=== PATIENT | male | born 1940 | race Caucasian/White ===

== ENCOUNTER 2023-11-07 13:46 | Outpatient (AMB) | payer MEDICARE, SELFPAY ==
[2023-11-07 13:52] VITALS: BP 110/64; PULSE 62; O2SAT 97; BMI 28.1
--- NOTE | 2023-11-07 13:52 | A.OFFVIS_ITS ---
Vital Signs 11/07/23 13:52 Height 5 ft 7 in Weight 179 lb 10.828 oz BMI 28.1 BP 110/64 Blood Pressure Location Lt brachial Position Sitting Pulse 62 Pulse Source Doppler Pulse Oximetry (%) 97 Oxygen Delivery Method Room Air Intake Visit Reasons: chronic cough Allergies No Known Allergies Allergy (Verified 11/07/23 13:57) HPI HPI chronic cough: Details: 83-year-old gentleman, nonsmoker, with underlying history of sarcoidosis diagnosed over 30 years prior, on no recent therapy, referred for evaluation of chronic cough productive of whitish to yellowish sputum since April of 2023. Patient was tried on azithromycin and Tessalon with no significant improvement. He has family history of sarcoidosis in his sister. 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 [facility] Social History (Updated 11/07/23 @ 14:00 by Abbie Briscoe Jayda) Patient Tobacco Use Status: Never used Tobacco Review of Systems Const Denies daytime sleepiness, Denies excessive sweating, Denies fatigue, Denies fever(s), Denies lethargy, Denies malaise, Denies night sweats, Denies snoring and Denies weight loss Eyes Denies blurry vision and Denies itchy eyes ENT Denies nasal congestion, Denies post nasal drip, Denies sinus pain, Denies sinus pressure and Denies other ( Thrush) Card Denies chest pain, Denies pedal edema, Denies dyspnea, Denies orthopnea and Denies paroxysmal nocturnal dyspnea Resp Reports cough, Denies hemoptysis, Reports excessive phlegm production, Denies dyspnea, Denies snoring and Denies wheezing GI Denies abdominal pain and Denies heartburn Musc Denies myalgias, Denies arthralgias and Denies joint swelling Skin/Breast Denies rash Neuro Denies memory loss and Denies seizure-like activity Psych Denies abnormal sleep pattern, Denies anxiety and Denies memory loss Endo Denies excessive sweating, Denies fatigue and Denies heat intolerance John/Lymph Denies easy bruising Aller/Immun Denies itchy eyes, Denies seasonal rhinorrhea and Denies wheezing Physical Exam Vital Signs: Last Vital Signs Pulse 62 11/07/23 13:52 BP 110/64 11/07/23 13:52 Pulse Ox 97 11/07/23 13:52 Oxygen Delivery Method Room Air 11/07/23 13:52 BMI result Body Mass Index 28.1 Const General: no acute distress and alert Nutritional Appearance: not obese Orientation/consciousness: Other orientation findings ( oriented) HEENT Head: Yes atraumatic Eyes General: appearance normal, both eyes and all related structures Sclerae: sclerae normal EOM: EOMs intact bilaterally Neck Neck: Yes supple Lymphatic: no lymphadenopathy noted Resp Effort & Inspection: normal respiratory effort and no use of accessory muscles Auscultation: clear to auscultation bilaterally Cardio Rate: regular rate Rhythm: regular rhythm Heart sounds: no gallops, no murmurs and no rubs Skin General skin exam: other ( warm) Extrem General: No clubbing, No cyanosis and No edema Assessment & Plan Assessment & Plan (1) Chronic cough: Code(s): R05.3 - Chronic cough Category: Medical Plan: Unclear etiology, may have infectious or inflammatory components. Will obtain sputum culture and treat with empiric Augmentin. Codeine syrup for symptom relief. (2) Sarcoidosis: Code(s): D86.9 - Sarcoidosis, unspecified Category: Medical Plan: Will obtain CT chest for further evaluation. Orders: Orders Sputum Cult + Gram stain Today R05.3 - Chronic cough Fungus Cult Other Today R05.3 - Chronic cough CT chest wo IV con Today D86.9 - Sarcoidosis, unspecified Medications: New amoxicillin-pot clavulanate 875-125 mg 1 tab PO BID 20 tabs 0RF codeine-guaifenesin 10-100 mg/5 mL 10 mL PO Q4-6H PRN 473 mL 1RF cough 14 days Coding Level of Care Code New Pt Level 4 (83938) Diagnoses Chronic cough R05.3 Sarcoidosis D86.9
== END 2023-11-07 14:23 | disposition home or self-care (01) ==
PROVIDERS: PCP Internal Medicine; Referring Provider Internal Medicine; Visit Provider Internal Medicine Pulmonary Disease
DX: R05.3 Chronic cough (principal); D86.9 Sarcoidosis, unspecified
CPT/HCPCS: 99204

== ENCOUNTER 2023-11-07 13:46 | Outpatient (REF) | payer MEDICARE, SELFPAY | END 2023-11-07 13:47 | disposition home or self-care (01) | LOC: HO.LAB 13:46 | PROVIDERS: PCP Internal Medicine; Referring Provider Internal Medicine; Visit Provider Internal Medicine Pulmonary Disease | DX: R05.3 Chronic cough (principal); D86.9 Sarcoidosis, unspecified | CPT/HCPCS: 99202 ==

== ENCOUNTER 2023-12-11 16:07 | Outpatient (REF) | payer MEDICARE, SELFPAY ==
--- NOTE | ~2023-12-11 | CT_ITS ---
EXAMINATION: CT CHEST WITHOUT CONTRAST CLINICAL INFORMATION: Sarcoidosis, unspecified. COMPARISON: None available. TECHNIQUE: Multidetector volumetric CT imaging of the chest was done. Axial MIP volume rendering provided. Sagittal and coronal reformatted images were obtained. This CT examination was performed using dose optimization techniques as appropriate, variously including the following: *Automated exposure control *Adjustment of mA and/or kV according to patient size (this includes techniques or standardized protocols for targeted exams where dose is matched to indication/reason for exam; i.e. extremities or head) *Use of iterative reconstruction technique DLP: 144 mGy-cm FINDINGS: LUNGS: Mild cylindrical bronchiectasis with a lower lobe predominance. Mild peripheral reticulation in the lower lobes. Platelike opacities in the right lung base favoring to represent subsegmental atelectasis or scarring. No dense consolidation or significant groundglass disease. Central airways are patent. Multiple bilateral solid pulmonary nodules are seen measuring up to 4 mm, for instance right lower lobe (image 102 series 6 and image 120 series 6) and left lower lobe (image 127 series 6). MEDIASTINUM: Normal heart size. No pericardial effusion. No mediastinal lymphadenopathy. CORONARY ARTERY CALCIFICATION: Severe multivessel coronary calcifications with postoperative changes/stents in some of the coronary arteries. PLEURA: No pleural effusion or pneumothorax. AXILLA: No lymphadenopathy. UPPER ABDOMEN: Too small to characterize liver hypodensities images 45 and 53, series 7. Nonspecific gastric distention. OSSEOUS STRUCTURES: Chronic fractures of the right posterior eighth and ninth ribs and posterior left 12th rib with callus formation. Degenerative changes of the spine. No acute or aggressive appearing osseous findings. CT/CT chest wo IV con IMPRESSION: 1. Mild cylindrical bronchiectasis and peripheral reticulation with a lower lobe predominance. Findings could indicate early interstitial lung abnormality with fibrosis. Recommend short-term follow-up in 3-6 months with high-resolution CT chest. 2. Multiple bilateral solid pulmonary nodules measuring up to 4 mm. According to the UPDATED 2017 Fleischner Society recommendations, the advised follow-up imaging for multiple solid nodules measuring up to 6-8 mm is follow-up CT at 3 to 6 months. 3. Nonspecific too small to characterize liver hypodensities. Recommend attention on follow-up at the time of the re-examination of the pulmonary nodules to ensure stability, alternatively, for further characterization evaluation with ultrasound could be obtained. Fleischner guidelines were followed.
== END 2023-12-11 16:08 | disposition home or self-care (01) ==
LOC: HO.CT 16:07
PROVIDERS: Visit Provider Internal Medicine Pulmonary Disease
DX: D86.9 Sarcoidosis, unspecified (principal)
CPT/HCPCS: 71250

== ENCOUNTER 2023-12-18 13:23 | Outpatient (AMB) | payer MEDICARE, SELFPAY ==
[2023-12-18 13:25] VITALS: BP 108/74; PULSE 95; O2SAT 96; BMI 28.5
--- NOTE | 2023-12-18 13:25 | MHC.OFFVIS ---
Vital Signs 12/18/23 13:25 Height 5 ft 7 in Weight 182 lb BMI 28.5 BP 108/74 Blood Pressure Location Rt brachial Position Sitting Pulse 95 Pulse Source Doppler Pulse Oximetry (%) 96 Oxygen Delivery Method Room Air Intake Visit Reasons: Cchronic Cough Allergies No Known Allergies Allergy (Verified 12/18/23 13:31) HPI HPI Cchronic Cough: Details: 83-year-old gentleman, nonsmoker, with underlying history of sarcoidosis diagnosed over 30 years prior, on no recent therapy, referred for evaluation of chronic cough productive of whitish to yellowish sputum since April of 2023. Patient was tried on azithromycin and Tessalon with no significant improvement. He has family history of sarcoidosis in his sister. 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 After the last office visit patient has completed his antibiotic regimen and stated that his cough has improved significantly while on Augmentin, however did slowly return after finishing it. Patient also had his CT chest with no official read available at this time, reviewed by me does not show significant intrapulmonary disease. [facility] Social History Patient Tobacco Use Status: Never used Tobacco Review of Systems Const Denies daytime sleepiness, Denies excessive sweating, Denies fatigue, Denies fever(s), Denies lethargy, Denies malaise, Denies night sweats, Denies snoring and Denies weight loss Eyes Denies blurry vision and Denies itchy eyes ENT Denies nasal congestion, Denies post nasal drip, Denies sinus pain, Denies sinus pressure and Denies other ( Thrush) Card Denies chest pain, Denies pedal edema, Denies dyspnea, Denies orthopnea and Denies paroxysmal nocturnal dyspnea Resp Reports cough, Denies hemoptysis, Reports excessive phlegm production, Denies dyspnea, Denies snoring and Denies wheezing GI Denies abdominal pain and Denies heartburn Musc Denies myalgias, Denies arthralgias and Denies joint swelling Skin/Breast Denies rash Neuro Denies memory loss and Denies seizure-like activity Psych Denies abnormal sleep pattern, Denies anxiety and Denies memory loss Endo Denies excessive sweating, Denies fatigue and Denies heat intolerance John/Lymph Denies easy bruising Aller/Immun Denies itchy eyes, Denies seasonal rhinorrhea and Denies wheezing Physical Exam Vital Signs: Last Vital Signs Pulse 95 12/18/23 13:25 BP 108/74 12/18/23 13:25 Pulse Ox 96 12/18/23 13:25 Oxygen Delivery Method Room Air 12/18/23 13:25 BMI result Body Mass Index 28.5 Const General: no acute distress and alert Nutritional Appearance: not obese Orientation/consciousness: Other orientation findings ( oriented) HEENT Head: Yes atraumatic Eyes General: appearance normal, both eyes and all related structures Sclerae: sclerae normal EOM: EOMs intact bilaterally Neck Neck: Yes supple Lymphatic: no lymphadenopathy noted Resp Effort & Inspection: normal respiratory effort and no use of accessory muscles Auscultation: clear to auscultation bilaterally Cardio Rate: regular rate Rhythm: regular rhythm Heart sounds: no gallops, no murmurs and no rubs Skin General skin exam: other ( warm) Extrem General: No clubbing, No cyanosis and No edema Assessment & Plan Assessment & Plan (1) Chronic cough: Code(s): R05.3 - Chronic cough Category: Medical Plan: Initially improved on Augmentin, records after. Will try on longer course of Augmentin and will consider suppressive therapy. (2) Sarcoidosis: Code(s): D86.9 - Sarcoidosis, unspecified Category: Medical Plan: CT chest reviewed by me, does show mild peripheral early scarring that can be consistent with slowly progressive sarcoidosis, otherwise no clinical symptoms. Continue to monitor clinically. Medications: New albuterol sulfate 90 mcg/actuation 2 puffs inhalation Q4-6H PRN 1 inhaler 1RF shortness of breath or wheezing Refilled amoxicillin-pot clavulanate 875-125 mg 1 tab PO BID 42 tabs 0RF Coding Level of Care Code Est Pt Level 4 (14459) Diagnoses Chronic cough R05.3 Sarcoidosis D86.9
== END 2023-12-18 13:41 | disposition home or self-care (01) ==
PROVIDERS: PCP Internal Medicine; Visit Provider Internal Medicine Pulmonary Disease
DX: R05.3 Chronic cough (principal); D86.9 Sarcoidosis, unspecified
CPT/HCPCS: 99214

== ENCOUNTER → 2023-12-18 13:23 | Outpatient (BNVA) | payer MEDICARE, SELFPAY | PROVIDERS: PCP Internal Medicine; Visit Provider Internal Medicine Pulmonary Disease | DX: R05.3 Chronic cough (principal); D86.9 Sarcoidosis, unspecified | CPT/HCPCS: 99212 ==

== ENCOUNTER 2024-06-23 13:13 | Outpatient (AMB) | payer MEDICARE, SELFPAY ==
--- NOTE | 2024-06-23 13:20 | A.OFFVIS_ITS ---
Vital Signs 06/23/24 13:22 Height 5 ft 7 in Weight 174 lb BMI 27.2 BP 108/64 Blood Pressure Location Lt brachial Position Sitting Pulse 77 Pulse Source Doppler Pulse Oximetry (%) 95 Oxygen Delivery Method Room Air Intake Visit Reasons: Cough Allergies No Known Allergies Allergy (Verified 12/18/23 13:31) HPI HPI Cough: Details: 83-year-old gentleman, nonsmoker, followed for sarcoidosis, bronchiectasis, and recurrent cough. After the last office visit patient continued with recurrent cough with poor response to beta-lactam. [facility] Social History Patient Tobacco Use Status: Never used Tobacco Review of Systems Const Denies daytime sleepiness, Denies excessive sweating, Denies fatigue, Denies fever(s), Denies lethargy, Denies malaise, Denies night sweats, Denies snoring and Denies weight loss Eyes Denies blurry vision and Denies itchy eyes ENT Denies nasal congestion, Denies post nasal drip, Denies sinus pain, Denies sinus pressure and Denies other ( Thrush) Card Denies chest pain, Denies pedal edema, Denies dyspnea, Denies orthopnea and Denies paroxysmal nocturnal dyspnea Resp Reports cough, Denies hemoptysis, Reports excessive phlegm production, Denies d yspnea, Denies snoring and Denies wheezing GI Denies abdominal pain and Denies heartburn Musc Denies myalgias, Denies arthralgias and Denies joint swelling Skin/Breast Denies rash Neuro Denies memory loss and Denies seizure-like activity Psych Denies abnormal sleep pattern, Denies anxiety and Denies memory loss Endo Denies excessive sweating, Denies fatigue and Denies heat intolerance John/Lymph Denies easy bruising Aller/Immun Denies itchy eyes, Denies seasonal rhinorrhea and Denies wheezing Physical Exam Vital Signs: Last Vital Signs Pulse 77 06/23/24 13:22 BP 108/64 06/23/24 13:22 Pulse Ox 95 06/23/24 13:22 Oxygen Delivery Method Room Air 06/23/24 13:22 BMI result Body Mass Index 27.2 Const General: no acute distress and alert Nutritional Appearance: not obese Orientation/consciousness: Other orientation findings ( oriented) HEENT Head: Yes atraumatic Eyes General: appearance normal, both eyes and all related structures Sclerae: sclerae normal EOM: EOMs intact bilaterally Neck Neck: Yes supple Lymphatic: no lymphadenopathy noted Resp Effort & Inspection: normal respiratory effort and no use of accessory muscles Auscultation: clear to auscultation bilaterally Cardio Rate: regular rate Rhythm: regular rhythm Heart sounds: no gallops, no murmurs and no rubs Skin General skin exam: other ( warm) Extrem General: No clubbing, No cyanosis and No edema Assessment & Plan Assessment & Plan (1) Sarcoidosis: Code(s): D86.9 - Sarcoidosis, unspecified Category: Medical Plan: Results of CT scan of the chest reviewed. Cylindrical bronchiectasis with small nodules and underlying stigmata of sarcoidosis. Will repeat CT scan in November of 2024. (2) Bronchiectasis: Code(s): J47.9 - Bronchiectasis, uncomplicated Category: Medical Plan: Now with ongoing exacerbation with poor response to beta-lactam. Will obtain sputum culture. If inconclusive, may require bronchoalveolar lavage. (3) Chronic cough: Code(s): R05.3 - Chronic cough Category: Medical Plan: Likely secondary to bronchiectasis exacerbation. Sputum cultures pending. Continue codeine syrup for symptom control. Orders: Orders Sputum Cult + Gram stain Today R05.3 - Chronic cough Medications: Refilled codeine-guaifenesin 10-100 mg/5 mL 10 mL PO Q4-6H 14 days PRN 473 mL 0RF cough Coding Level of Care Code Est Pt Level 4 (64911) Complex EM visit Add On G2211 Diagnoses Sarcoidosis D86.9 Bronchiectasis J47.9 Chronic cough R05.3
[2024-06-23 13:22] VITALS: BP 108/64; PULSE 77; O2SAT 95; BMI 27.2
--- OUTSIDE RECORDS SUMMARY | 2024-06-24 21:34 | XMS_ITS | Data Portability ---
Author Organization [facility] Address [address] [facility] [address] [place] [address] Care Team Providers Care Wash Driller Helper Name Role Phone AMELIA LOYA Primary Care Provider Assessment Encounter Date Assessment Date Assessment LastModified by Organization Details LastModified Time 09/13/2020 09/13/2020 Rito Connors is a 79 year old man with low back pain radiating into both lower extremities. On exam ,he has pain on flexion. MRI Lumbar spine shows Spondylotic and degenerative disc changes of the lumbar spine are present . He is here for a Lumbar epidural steroid injections under fluoroscopic guidance . The risks and benefits of the procedure were discussed in detail. He wishes to proceed. He needs a follow up by telehealth visit in four weeks. [email or web address] Not available 09/13/2020 13:01:04 09/19/2020 09/19/2020 Rito Connors is a 78 year old man with complaints of neck pain radiating into right upper back. He has history of neck pain for the past 10 years. He had a recent exacerbation three weeks ago. He has no persistent radiating pain in his upper extremities. On exam, tenderness is elicited on palpation of the cervical paraspinal muscles. Spurling's sign is negative. Trigger points are elicited in the right paraspinal muscle. MRI cervical spine shows Reversed cervical lordosis with multilevel degenerative changes as discussed above. Multilevel central and foraminal narrowing. At C3-4, there is increased loss of disc height with increased foraminal stenosis compared to 04/06/2014 study. He is here for a trigger point injections in his right paraspinal muscle in the cervical region under ultrasound guidance . The risks and benefits of the procedure were discussed and he wishes to proceed . He will follow up as needed. [email or web address] Not available 09/19/2020 14:04:01 05/08/2021 05/08/2021 Rito Connors is a 80 year old man with complaints of neck pain radiating into right upper back. He has history of neck pain for the past 10 years. He had a recent exacerbation three weeks ago. He has no persistent radiating pain in his upper extremities. On exam, tenderness is elicited on palpation of the cervical paraspinal muscles. Spurling's sign is negative. Trigger points are elicited in the right paraspinal muscle. MRI cervical spine shows Reversed cervical lordosis with multilevel degenerative changes as discussed above. Multilevel central and foraminal narrowing. At C3-4, there is increased loss of disc height with increased foraminal stenosis compared to 04/06/2014 study. He is here for a trigger point injections in his right paraspinal muscle in the cervical region under ultrasound guidance . The risks and benefits of the procedure were discussed and he wishes to proceed . He will follow up as needed. [email or web address] Not available 05/08/2021 15:08:41 11/16/2021 11/16/2021 Rito Connors is a 81 year old man with complaints of neck pain radiating into right upper back. He has history of neck pain for the past 10 years. He had a recent exacerbation three weeks ago. He has no persistent radiating pain in his upper extremities. On exam, tenderness is elicited on palpation of the cervical paraspinal muscles. Spurling's sign is negative. Trigger points are elicited in the right paraspinal muscle. MRI cervical spine shows Reversed cervical lordosis with multilevel degenerative changes as discussed above. Multilevel central and foraminal narrowing. At C3-4, there is increased loss of disc height with increased foraminal stenosis compared to 04/06/2014 study. He is here for a trigger point injections in his right paraspinal muscle in the cervical region under ultrasound guidance . The risks and benefits of the procedure were discussed and he wishes to proceed . He will follow up as needed. [email or web address] Not available 11/16/2021 15:27:56 04/04/2023 04/04/2023 Rito Connors is a 82 year old man with complaints of right shoulder pain and limited range of motion. He had a recent episode of herpes zoster in his right arm and shoulder . He is very sensitive to touch in this region. He is unable to have physical therapy. I recommend a right shoulder joint steroid injection in two weeks and then followed by PT For his post herpetic neuralgia - I have prescribed lidocaine patches for him. [email or web address] Not available 04/08/2023 09:28:59 Plan of Treatment Reminders Order Date Submit Date Provider Last Modified By Organization Details Last Modified Time Details Appointments None recorded. Lab None recorded. Referral None recorded. Procedures None recorded. Surgeries None recorded. Imaging None recorded. Medication Orders lidocaine 5 % topical patch 2022 023 [id number], [address], [place], [id number], 15:51:17 Patient TargetsNo targets recorded. Patient Instructions Encounter Date Encounter Id Patient Instructions Last Modified By Organization Details Last Modified Time 04/04/2023 [id number] He was advised against bed rest lasting longer than four days and to continue activities as tolerated. [email or web address] Not available 04/05/2023 14:30:30 Reason for Referral None Reported. Problems Name Problem SNOMED Code Status Onset Date Resolution Date Notes Provider Name and Address Organization Details Recorded Time Muscle pain 72106369 Active Vignesh jama MD [address] , [address], [place], [address], [place] [facility] 5 09:07:06 Occipital headache [id number] Sam jama MD [address] , [address], [place], [address], [place] [facility] 5 09:07:06 Spinal stenosis of lumbar region 93418234 Sam jama MD [address] , [address], [place], [address], [place] [facility] 0 10:04:40 Lumbosacral radiculopathy [id number] Sam jama MD [address] , [address], [place], [address], [place] [facility] 0 10:05:08 Lumbosacral spondylosis without myelopathy 50495371 Active Vingesh jama MD [address] , [address], [place], [address], [place] [facility] 0 10:05:44 Cervical spondylosis without myelopathy 352599207 Active Vignesh jama MD [address] , [address], [place], [address], [place] [facility] 5 09:07:06 Degeneration of cervical intervertebral disc 59718299 Active Vignesh jama MD [address] , [address], [place], [address], [place] [facility] 5 09:07:06 Brachial radiculitis 89723493 Active Vignesh jama MD [address] , [address], [facility] [place], [address], [place] [facility] 5 09:07:06 Spinal stenosis in cervical region 94362072 Active Vignesh jama MD [address] , [address], [place], [address], [place] [facility] 5 09:07:06 Problem Notes None recorded. Procedures Surgical History Date Name Laterality Status Provider Name and Address Organization Details Recorded Time 11/17/19 22 Trigger Point Injections under ultrasound guidance completed Vignesh Turner MD [address] , [address], [place], [address], [place] [facility] 11/16/2021 15:26:53 05/08/20 21 Trigger Point Injections under ultrasound guidance completed Vignesh Turner MD [address] , [address], [place], [address], [place] [facility] 05/08/2021 15:07:38 09/20/19 21 Trigger Point Injections under ultrasound guidance completed Vignesh Turner MD [address] , [address], [facility] [place], [address], [place] [facility] 09/19/2020 13:59:20 09/14/19 21 Lumbar Epidural steroid injection under fluoroscopic guidance completed Vignesh Turner MD [address] [facility] , [address], [place], [address], [facility] - Pain Management 09/13/2020 13:00:33 04/19/20 20 Lumbar Epidural steroid injection under fluoroscopic guidance completed Vignesh Turner MD [address] [facility] , [address], [place], [address], [facility] - Pain Management 04/19/2020 10:35:16 09/17/19 20 Greater Occipital Nerve Block(s) completed Vignesh Turner MD [address] , [address], [place], [address], [facility] - Pain Management 09/17/2019 16:11:38 Hernia Repair completed Shruthi Zavala [facility] Pain Management 04/09/2014 10:17:03 Other completed Vignesh Turner MD [address] [facility] , [address], [place], [address], [facility] - Pain Management 04/01/2020 14:04:04 Imaging Results None recorded. Procedure Notes None recorded. Medical Equipment None Reported. Allergies Allergen ID Allergen Name Allergen Category Reaction Reaction Severity Criticality Documentation Date Start Date Code Code System Note Provider Name and Address Organization Details Recorded Time shellfish derived food,medi cation Not available Not available Not available 04/04/2023 Lori merlos, [facility] 3 15:31:06 Medications Name Sig Start Date Stop Date Status Note LastModified by Organization Details LastModified Time atorvastat in 80 mg tablet TAKE 1 TABLET BY MOUTH AT BEDTIME active Not Available Not Available No t Available prednisone 10 mg tablet TAKE 4 TABLETS BY MOUTH ONCE DAILY FOR 2 DAYS THEN 3 TABS X2 DAYS... (REFER TO PRESCRIPT ION NOTES). 08/31 completed Not Available Not Available Not Available doxycyclin e hyclate 100 mg capsule TAKE 1 CAPSULE BY MOUTH TWICE DAILY 04/04 completed Not Available Not Available Not Available trazodone 50 mg tablet active Not Available Not Available Not Available valacyclov ir 1 gram tablet active Not Available Not Available Not Available prednisone 20 mg tablet 08/31 completed Not Available Not Available Not Available niacin ER 500 mg tablet,ext ended release 24 hr 03/25 completed Not Available Not Available Not Available methylpred nisolone 4 mg tablet 11/16 completed Not Available Not Available Not Available atenolol 25 mg tablet TAKE 1 TABLET BY MOUTH TWICE DAILY 11/16 completed Not Available Not Available Not Available nafcillin 2 gram solution for injection 08/31 completed Not Available Not Available Not Available acetaminop hen 300 mg-codeine 30 mg tablet active Not Available Not Available Not Available levofloxac in 250 mg tablet 08/31 completed Not Available Not Available Not Available acyclovir 400 mg tablet active Not Available Not Available Not Available tramadol 50 mg tablet 04/04 completed Not Available Not Available Not Available hydromorph one 2 mg tablet 04/04 completed Not Available Not Available Not Available tamsulosin 0.4 mg capsule TAKE 1 CAPSULE BY MOUTH EVERY DAY active Not Available Not Available No t Available benzonatat e 100 mg capsule take 1 capsule by mouth three times a day if needed 08/31 completed Not Available Not Available Not Available lidocaine 5 % topical patch Apply by topical route for 60 days. active Not Available Not Available No t Available Advair Diskus 250 mcg-50 mcg/dose powder for inhalation inhale 1 puff by mouth twice a day active Not Available Not Available No t Available metoprolol tartrate 50 mg tablet TAKE 2 TABLETS BY MOUTH TWICE DAILY active Not Available Not Available No t Available gabapentin 300 mg capsule TAKE 1 CAPSULE BY MOUTH TWICE DAILY active Not Available Not Available No t Available omeprazole 20 mg capsule,de layed release 04/04 completed Not Available Not Available Not Available codeine 10 mg-guaifen esin 100 mg/5 mL oral liquid TAKE 10 ML BY MOUTH FOUR TIMES DAILY NEEDED 04/04 completed Not Available Not Available Not Available gabapentin 100 mg capsule 04/04 completed Not Available Not Available Not Available azelastine 137 mcg (0.1 %) nasal spray 04/04 completed Not Available Not Available Not Available cefuroxime axetil 500 mg tablet TAKE 1 TABLET BY MOUTH TWICE DAILY FOR 5 DAYS 04/04 completed Not Available Not Available Not Available levofloxac in 500 mg tablet take 1 tablet by mouth every 24 hours active Not Available Not Available No t Available levofloxac in 750 mg tablet 08/31 completed Not Available Not Available Not Available methylpred nisolone 4 mg tablets in a dose pack FOLLOW PACKAGE DIRECTION S 04/04 completed Not Available Not Available Not Available albuterol sulfate HFA 90 mcg/actuat ion aerosol inhaler take 2 inhalatio ns by mouth every 4 hours if needed 11/16 completed Not Available Not Available Not Available fluoxetine 20 mg capsule 08/31 completed Not Available Not Available Not Available fluticason e propionate 50 mcg/actuat ion nasal spray,susp ension 11/16 completed Not Available Not Available Not Available doxycyclin e hyclate 100 mg tablet TAKE 1 TABLET BY MOUTH EVERY 12 HOURS FOR 5 DAYS 04/04 completed Not Available Not Available Not Available amoxicilli n 875 mg-potassi um clavulanat e 125 mg tablet TAKE 1 TABLET BY MOUTH EVERY 12 HOURS FOR 5 DAYS 04/04 completed Not Available Not Available Not Available oxycodone 5 mg tablet TAKE 1-2 TABLETS BY MOUTH EVERY 4 HOURS NEEDED FOR MODERATE PAIN SCALE 4-6 04/04 completed Not Available Not Available Not Available enoxaparin 80 mg/0.8 mL subcutaneo us syringe INJECT 0.7 ML UNDER THE SKIN EVERY 12 HOURS FOR 21 DAYS 04/04 completed Not Available Not Available Not Available Vitamin D3 25 mcg (1,000 unit) capsule weekly 04/19 completed Not Available Not Available Not Available Cialis 20 mg tablet 04/19 completed Not Available Not Available Not Available duloxetine 30 mg capsule,de layed release active Not Available Not Available Not Available aspirin 11/16 completed Baby ASA at night Not Available Not Available Not Available omeprazole active Not Available Not Av ailable Not Available [place] 3 Daily 08/31 completed Not Available Not Available Not Available peg 3350-elect rolytes 236 gram-22.74 gram-6.74 gram-5.86 gram solution active Not Available Not Available Not Available CoQ-10 daily 09/16 completed Not Available Not Available Not Available Probiotic daily 08/31 completed Not Available Not Available Not Available Ilevro 0.3 % eye drops,susp ension 08/31 completed Not Available Not Available Not Available Eliquis 5 mg tablet TAKE 1 TABLET BY MOUTH TWICE DAILY active Not Available Not Available No t Available Multi Vitamin Twice 08/31 completed Not Available Not Available Not Available Venclexta 100 mg tablet active Not Available Not Available Not Available Vitals Date Recorded Body height Heart rate Oxygen saturation Oxygen saturation in Arterial blood by Pulse oximetry Systolic blood pressure Diastolic blood pressure Provider Name and Address Organization Details Last Updated DateTime 1 170.18 cm 61 /min 96 % 96 % 130 mm[Hg] 72 mm[Hg] Brielle Mcgillwell [facility] 1 11:19:54 Date Recorded Body height Heart rate Oxygen saturation Oxygen saturation in Arterial blood by Pulse oximetry Systolic blood pressure Diastolic blood pressure Provider Name and Address Organization Details Last Updated DateTime 1 170.18 cm 99 /min 97 % 97 % 151 mm[Hg] 83 mm[Hg] Brielle Gallardo [facility] 1 13:36:10 Date Recorded Body height Heart rate Oxygen saturation Oxygen saturation in Arterial blood by Pulse oximetry Systolic blood pressure Diastolic blood pressure Provider Name and Address Organization Details Last Updated DateTime 1 170.18 cm 84 /min 99 % 99 % 142 mm[Hg] 70 mm[Hg] Kyara jama [place] [facility] 1 14:35:03 Date Recorded Body height Heart rate Oxygen saturation Oxygen saturation in Arterial blood by Pulse oximetry Systolic blood pressure Diastolic blood pressure Provider Name and Address Organization Details Last Updated DateTime 2 170.18 cm 73 /min 99 % 99 % 138 mm[Hg] 74 mm[Hg] Brielle Gallardo [facility] 2 14:38:22 Date Recorded Body height Body mass index (BMI) Body weight Heart rate Oxygen saturation Oxygen saturation in Arterial blood by Pulse oximetry Systolic blood pressure Diastolic blood pressure Provider Name and Address Organization Details Last Updated DateTime 3 167.64 cm 27.6 kg/m2 02585.3 g 72 /min 97 % 97 % 141 mm[Hg] 82 mm[Hg] Lori Lake [place] [facility] 3 15:23:38 Social History Question Answer Notes LastModified by Organizat ion Details LastModified Time Tobacco Smoking Status Never Smoker Not Available [facility] 04/29/2020 03:16:10 What Is Your Level Of Alcohol Consumption? None [id number] Information not available 04/29/2020 Are You Currently Employed? No Retired [id number] Information not available 04/29/2020 Which Illicit Or Recreational Drugs Have You Used? No [id number] Information not available 04/29/2020 Education Post Graduate Information not available 04/09/2014 Live Alone Or With Others? With Others acde Information not available 04/09/2014 Marital Status Informatio n not available 04/09/2014 Sex: Unknown Functional Status None recorded. Mental Status None recorded. Family History Relationship Description Onset Age of this Age Resolved Age Notes LastModified by Organization Details LastModified Time Brother Malignant neoplastic disease [facility] Not available 10/03/2014 08:59:36 Mother [facility] [facility] Not available 10/03/2014 08:59:36 Medical History Condition Response Coronary Artery Disease Y Hypertension Y Asthma Y High Cholesterol Y GERD/Reflux Y Past Encounters Encounter ID Performer Location Encounter Start Date Encounter Closed Date Diagnosis/Indication Diagnosis SNOMED-CT Code Diagnosis ICD10 Code [id number] PAIN OFFICE [address] [place] [address] 04/09/2014 09:56:40 04/27/2014 21:34:53 Brachial radiculitis 58416808 Cervical s pondylosis without myelopathy 801841243 Degenerati on of cervical intervertebral disc 15659179 Spinal quinton nosis in cervical region 96613916 [id number] PAIN OFFICE [address] [place] [address] 10/01/2014 10:29:23 10/03/2014 09:07:37 Degeneration of cervical intervertebral disc 07111278 Spinal quinton nosis in cervical region 29584809 Cervical s pondylosis without myelopathy 264927881 Brachial radiculitis 278 29610 Muscle pain 55155936 Occipital headache 71746 7 [id number] Vignesh Turner MD PAIN OFFICE [address] [place] [address] 08/31/2019 13:31:12 08/31/2019 16:46:15 Cervical spondylosis without myelopathy 273349183 M47.812 Degenerati on of cervical intervertebral disc 06134507 M50.30 Spinal quinton nosis in cervical region 94371062 M48.02 Occipital headache 04468 7 R51 Muscle pain 09839004 M79 .10 Brachial radiculitis 278 89112 M54.12 [id number] Vignesh Turner MD [facility] [address] [place] [address] 09/17/2019 14:25:08 09/17/2019 16:14:06 Cervical spondylosis without myelopathy 083344669 M47.812 Degenerati on of cervical intervertebral disc 48272328 M50.30 Spinal quinton nosis in cervical region 65140096 M48.02 Occipital headache 47489 7 R51 Muscle pain 28916323 M79 .10 Brachial radiculitis 278 16578 M54.12 [id number] Vignesh Turner MD [facility] [address] [place] [address] 03/25/2020 09:55:41 04/01/2020 14:06:05 Lumbosacral radiculopathy 3952778 M54.17 Lumbosacra l spondylosis without myelopathy 53186018 M47.817 Spinal quinton nosis of lumbar region 75655100 M48.061 [id number] Vignesh Turner MD PAIN OFFICE [address] [place] [address] 04/19/2020 10:01:22 04/19/2020 16:12:26 Lumbosacral radiculopathy 1545291 M54.17 Lumbosacra l spondylosis without myelopathy 86934268 M47.817 Spinal quinton nosis of lumbar region 48934524 M48.061 [id number] Vignesh Turner MD [facility] [address] [place] [address] 05/13/2020 11:21:13 05/13/2020 11:34:57 Lumbosacral radiculopathy 6350423 M54.17 Lumbosacra l spondylosis without myelopathy 89551677 M47.817 Spinal quinton nosis of lumbar region 67089722 M48.061 [id number] Vignesh Turner MD [facility] [address] [place] [address] 09/13/2020 10:55:19 09/13/2020 13:31:23 Lumbosacral radiculopathy 7053384 M54.17 Lumbosacra l spondylosis without myelopathy 64072261 M47.817 Spinal quinton nosis of lumbar region 19314196 M48.061 [id number] Vignesh Turner MD [facility] [address] [place] [address] 09/19/2020 13:30:22 09/19/2020 14:02:01 Cervical spondylosis without myelopathy 751958719 M47.812 Degenerati on of cervical intervertebral disc 96072363 M50.30 Spinal quinton nosis in cervical region 28907231 M48.02 Occipital headache 91612 7 R51.9 Muscle pain 12396025 M79 .18 Brachial radiculitis 278 25714 M54.12 [id number] Vignesh Turner MD [facility] [address] [place] [address] 05/08/2021 14:30:41 05/08/2021 15:09:32 Cervical spondylosis without myelopathy 765865206 M47.812 Degenerati on of cervical intervertebral disc 70027676 M50.30 Spinal quinton nosis in cervical region 02562939 M48.02 Occipital headache 78016 7 R51.9 Muscle pain 84178481 M79 .18 Brachial radiculitis 278 49734 M54.12 [id number] Vignesh Turner MD [facility] [address] [place] [address] 11/16/2021 14:10:52 11/16/2021 15:34:04 Cervical spondylosis without myelopathy 973857118 M47.812 Degenerati on of cervical intervertebral disc 20825743 M50.30 Spinal quinton nosis in cervical region 13162080 M48.02 Occipital headache 16345 7 R51.9 Muscle pain 76478379 M79 .18 Brachial radiculitis 278 57609 M54.12 [id number] Vignesh Turner MD PAIN OFFICE [address] [place] [address] [place] [address] 04/04/2023 15:11:25 04/08/2023 09:34:07 Postherpetic neuralgia 3735966 B02.29 Inflammati on of joint of shoulder region 381570628 M13.811 Health Concerns Section Related Observation LastModified by Organization Detai ls LastModified Time None Recorded Concern Status LastModified by Organization Details LastModified Time None Recorded Advance Directives Directive None Recorded Payers Encounter Date Sequence Insurance Name Policy Number Policy Bhandari Covered Member ID Bhandari Member ID Guarantor Name 09/13/2020 1 [place] Rito E Bombard [id number] Rito Bombard 09/13/2020 2 [place] [id number] Rito E Bombard [id number] Rito Bombard 09/19/2020 1 [place] Rito E Bombard [id number] Rito Bombard 09/19/2020 2 [place] [id number] Rito E Bombard [id number] Rito Bombard 05/08/2021 1 [place] Rito E Bombard [id number] Rito Bombard 05/08/2021 2 [place] [id number] Rito E Bombard [id number] Rito Bombard 11/16/2021 1 [place] Rito E Bombard [id number] Rito Bombard 11/16/2021 2 [place] [id number] Rito E Bombard [id number] Rito Bombard 04/04/2023 1 [place] Rito E Bombard [id number] Rito Bombard 04/04/2023 2 [place] [id number] Rito E Bombard [id number] Rito Connors Notes Date Note Type Note Provider Name and Address Organization Details Recorded Time 09/13/2020 text/html He is here today for a lumbar epidural steroid injection under fluoroscopic guidance. Vignesh Turner MD [address] [facility] , [address], [place], [address], [place] [facility] 09/14/2020 09:31:31 09/19/2020 text/html He is here for a right paraspinal muscle trigger point injection under ultrasound guidance. Vignesh Turner MD [address] , [address], [place], [address], [place] [facility] 09/19/2020 14:04:08 05/08/2021 text/html He is here for a right paraspinal muscle trigger point injection under ultrasound guidance. Vignesh Turner MD [address] [facility] , [address], [place], [address], [place] [facility] 05/08/2021 15:12:39 11/16/2021 text/html He is here for a right paraspinal muscle trigger point injection under ultrasound guidance. Vignesh Turner MD [address] , [address], [place], [address], [place] [facility] 11/17/2021 13:31:34 04/04/2023 text/html Rito Connors is a 82 year old man with complaints of right shoulder and arm pain. He is here for a follow up. He was last seen in 11/16/2021 for a trigger point injection. He feels it was helpful. He had herpes zoster about 4 weeks ago with a rash in his right shoulder and arm. He is S/P two courses of antiviral medications. He continues to have pain. He states the searing sporadic pain has subsided. Now he has burning pain with allodynia in the region of the healing rash. He is on duloxetine and gabapentin. He states he has some cloudiness of thought. His grand daughter drove him for today's visit. Vignesh Turner MD [address] [facility] , [address], [place], [address], [place] [facility] 04/08/2023 10:56:48
--- OUTSIDE RECORDS SUMMARY | 2024-06-24 21:34 | XMS_ITS | Clinical Summary ---
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 Active 12-29 00:00: 00 OTHER PANCYTOPENIA Active 07-15 00:00: 00 TUMOR LYSIS SYNDROME Active 07-15 00:00: 00 ATHSCL HEART DISEASE OF [place] CORONARY ARTERY W/O ANG PCTRS Active 07-15 00:00: 00 ESSENTIAL (PRIMARY) HYPERTENSION Active 07-15 00:00: 00 UNSPECIFIED HYDRONEPHROS IS Active 07-15 00:00: 00 BENIGN PAROXYSMAL VERTIGO, UNSPECIFIED EAR Active 07-15 00:00: 00 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 Active 07-15 00:00: 00 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 Active 07-15 00:00: 00 INSOMNIA, UNSPECIFIED Active 07-15 00:00: 00 HEADACHE, UNSPECIFIED Active 07-15 00:00: 00 MIXED HYPERLIPIDEM IA Active 07-15 00:00: 00 PERSONAL HISTORY OF ANTINEOPLAST IC CHEMOTHERAPY Active 12-29 00:00: 00 HISTORY OF FALLING Active 07-15 00:00: 00 PRISON (CURRENT) USE OF ANTICOAGULAN TS Active 01-03 00:00: 00 Allergies, Adverse Reactions, Alerts Allergy Name Allergy Type Status Severity Reaction(s) Onset Date Inactive Date Treating Clinician Comments NO KNOWN ALLERGIES Propensity to adverse reactions Active 01-03 11:02: 15 Medications Ordered Medication Name Filled Medication Name Start Date Stop Date Current Medication? Ordering Clinician Indication Dosage Frequency Signature (SIG) Comments Components tamsulosin 0.4 mg capsule 4-05 00:00: 00 Yes [id number] DIRECTED Per instruc tions EVERY DAY Per instructio ns EVERY DAY (route: oral) Med Classific ation: Genitouri nary Therapy atorvastati n 80 mg tablet 3-30 00:00: 00 Yes [id number] Unavailable Per instruc tions AT BEDTIME Per instructio ns AT BEDTIME (route: oral) Med Classific ation: Cardiovas cular Therapy Agents allopurinol 300 mg tablet 01-03 00:00: 00 Yes [id number] DIRECTED 1 tablet DAILY 1 tablet DAILY (route: oral) Med Classific ation: Gout and Hyperuric emia Therapy cholecalcif sandi (vitamin D3) 25 mcg (1,000 unit) capsule 01-03 00:00: 00 Yes [id number] DIRECTED 1 capsule DAILY 1 capsule DAILY (route: oral) Med Classific ation: Electroly te Balance-N utritiona l Products Eliquis 5 mg tablet 01-03 00:00: 00 Yes [id number] DIRECTED 1 tablet 2 TIMES DAILY 1 tablet 2 TIMES DAILY (route: oral) Med Classific ation: Hematolog ical Agents metoprolol tartrate 50 mg tablet 01-03 00:00: 00 Yes [id number] DIRECTED 1 tablet 2 TIMES DAILY 1 tablet 2 TIMES DAILY (route: oral) Med Classific ation: Cardiovas cular Therapy Agents omeprazole 20 mg capsule,del ayed release 01-03 00:00: 00 Yes [id number] DIRECTED 1 mg DAILY 1 mg DA CHARIS (route: oral) Med Classific ation: Gastroint estinal Therapy Agents ondansetron 8 mg disintegrat ing tablet 01-03 00:00: 00 Yes [id number] DIRECTED 1 tablet EVERY 8 HOURS 1 tablet EVERY 8 HOURS (route: oral) Med Classific ation: Gastroint estinal Therapy Agents Vital Signs Vital Name Observation Time Observation Value Commen ts Temperature 2022-01-03 10:44:00.000 98.2 [degF] BMI (%) 2022-01-03 10:44:00.000 26 kg/m2 Height 2022-01-03 10:44:00.000 66 [in_us] Pulse 2022-01-03 10:44:00.000 62 /min Respirations 2022-01-03 10:44:00.000 18 /min Weight (lbs) 2022-01-03 10:44:00.000 166 [lb_av] Systolic Blood Pressure 2022-01-03 10:44:00.000 136 mm [Hg] Diastolic Blood Pressure 2022-01-03 10:44:00.000 68 mm [Hg] Plan of Treatment Planned Activity Planned Date Details Comments Future Scheduled Test PT EVALUAT ION PERFORMED. NO ADDITIONAL VISITS REQUIRED. PROVIDED SKILLED INTERVENTION INCLUDING PATIENT IS A 81 YEAR OLD MALE WHO RESIDES IN PRIVATE RESIDENCE WITH SINGLE STAIR REQUIRED TO ENTER AND EXIT HOME ENVIRONMENT. PATIENT REFERRED TO HOME CARE SERVICES FOR SOC TODAY DUE TO LEUKEMIA TREATMENT CAUSING INCREASED FATIGUE AND WEAKNESS LIMITING ACTIVITY TOLERANCE. PATIENT PLOF WAS INDEP IN HOME AND COMMUNITY WITH SPC USE. PATIENT MED HX OF CA CER AND HEART DISEASE, HTN. PATIENT PRESENTS TODAY AT SBA LEVELS REQUIRED FOR HOUSEHOLD GAIT AND STAIRS AND TRANSFERS. PATIENT UTILIZING SPC FOR FUNCTIONAL MOBILITY AND IS EDUCATED BY PT ON BENEFIT OF CONSISTENCY WITH SAME. PATIENT CUED BY PT ON PROPER PACING AND BREATHING TECHNIQUES FOR CONDITION MANAGEMENT. PATIENT PRESENTS TODAY AT MILD FALL RISK AT 0.8 M/S AND 16 SECONDS TUG WITH SPC. PATIENT AND CG EDUCATED BY PT ON BENEFIT OF CONSISTENCY WITH THEREX AND GAIT TASKS. PATIENT WILL BENEFIT FROM SKILLED PT TO PROMOTE IMPROVED FUNCTIONAL INDEP AND ACTIVITY TOLERANCE. PATIENT DECLINES FURTHER PT SERVICES AT PRESENT AND FEELS HE WILL IMPROVE ACTIVITY INDEP. PATIENT WILL FOLLOW UP WITH PHYSICIAN SCHEDULED AND CONTACT THIS PT WITH ANY FURTHER NEEDS. [code = PT EVALUATION PERFORMED. NO ADDITIONAL VISITS REQUIRED. PROVIDED SKILLED INTERVENTION INCLUDING PATIENT IS A 81 YEAR OLD MALE WHO RESIDES IN PRIVATE RESIDENCE WITH SINGLE STAIR REQUIRED TO ENTER AND EXIT HOME ENVIRONMENT. PATIENT REFERRED TO HOME CARE SERVICES FOR SOC TODAY DUE TO LEUKEMIA TREATMENT CAUSING INCREASED FATIGUE AND WEAKNESS LIMITING ACTIVITY TOLERANCE. PATIENT PLOF WAS INDEP IN HOME AND COMMUNITY WITH SPC USE. PATIENT MED HX OF CA CER AND HEART DISEASE, HTN. PATIENT PRESENTS TODAY AT SBA LEVELS REQUIRED FOR HOUSEHOLD GAIT AND STAIRS AND TRANSFERS. PATIENT UTILIZING SPC FOR FUNCTIONAL MOBILITY AND IS EDUCATED BY PT ON BENEFIT OF CONSISTENCY WITH SAME. PATIENT CUED BY PT ON PROPER PACING AND BREATHING TECHNIQUES FOR CONDITION MANAGEMENT. PATIENT PRESENTS TODAY AT MILD FALL RISK AT 0.8 M/S AND 16 SECONDS TUG WITH SPC. PATIENT AND CG EDUCATED BY PT ON BENEFIT OF CONSISTENCY WITH THEREX AND GAIT TASKS. PATIENT WILL BENEFIT FROM SKILLED PT TO PROMOTE IMPROVED FUNCTIONAL INDEP AND ACTIVITY TOLERANCE. PATIENT DECLINES FURTHER PT SERVICES AT PRESENT AND FEELS HE WILL IMPROVE ACTIVITY INDEP. PATIENT WILL FOLLOW UP WITH PHYSICIAN SCHEDULED AND CONTACT THIS PT WITH ANY FURTHER NEEDS. ] Goal 2022-01-03 Patient Goal - I WANT TO GET MY STRENGTH BACK Goal Provider Goal - Reason for Visit INDEPENDENT IN THE COMMUNITY Encounters Start Date/Time End Date/Time Encounter Type Admission Type Attending [facility] Care Department Encounter ID Discharge Date Discharge Status Discharge Condition Discharge Reason Percent Goals Met 2022-01-03 00:00:00 2022-01-03 00:00:00 Outpatient NEW ADMISSION LEENA SHERMAN [facility] [id number] 2022-01-03 00:00:00 DISCHARGE TO HOME OR SELF CARE INDEPENDEN T IN THE COMMUNITY COVID-19 - PT/CG REFUSES FURTHER VISITS
== END 2024-06-23 13:37 | disposition home or self-care (01) ==
PROVIDERS: PCP Internal Medicine; Visit Provider Internal Medicine Pulmonary Disease
DX: D86.9 Sarcoidosis, unspecified (principal); J47.9 Bronchiectasis, uncomplicated; R05.3 Chronic cough
CPT/HCPCS: 99214; G2211

== ENCOUNTER 2024-06-23 13:13 | Outpatient (REF) | payer MEDICARE, SELFPAY ==
--- OUTSIDE RECORDS SUMMARY | 2024-06-24 22:07 | XMS_ITS | Clinical Summary ---
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 Active 12-29 00:00: 00 OTHER PANCYTOPENIA Active 07-15 00:00: 00 TUMOR LYSIS SYNDROME Active 07-15 00:00: 00 ATHSCL HEART DISEASE OF [place] CORONARY ARTERY W/O ANG PCTRS Active 07-15 [...] HISTORY OF FALLING Active 07-15 00:00: 00 SNF (CURRENT) USE OF ANTICOAGULAN TS Active 01-03 [...] 0.4 mg capsule 4-05 00:00: 00 Yes [id number] DIRECTED Per instruc tions EVERY DAY Per instructio ns EVERY DAY (route: oral) Med Classific ation: Genitouri nary Therapy atorvastati n 80 mg tablet 3-30 00:00: 00 Yes [id number] Unavailable Per instruc tions AT BEDTIME Per instructio ns AT BEDTIME (route: oral) Med Classific ation: Cardiovas cular Therapy Agents allopurinol 300 mg tablet 01-03 00:00: 00 Yes [id number] DIRECTED 1 tablet DAILY 1 tablet DAILY (route: oral) Med Classific ation: Gout and Hyperuric emia Therapy cholecalcif sandi (vitamin D3) 25 mcg (1,000 unit) capsule 01-03 00:00: 00 Yes [id number] DIRECTED 1 capsule DAILY 1 capsule DAILY (route: oral) Med Classific ation: Electroly te Balance-N utritiona l Products Eliquis 5 mg tablet 01-03 00:00: 00 Yes [id number] DIRECTED 1 tablet 2 TIMES DAILY 1 tablet 2 TIMES DAILY (route: oral) Med Classific ation: Hematolog ical Agents metoprolol tartrate 50 mg tablet 01-03 00:00: 00 Yes [id number] DIRECTED 1 tablet 2 TIMES DAILY 1 tablet 2 TIMES DAILY (route: oral) Med Classific ation: Cardiovas cular Therapy Agents omeprazole 20 mg capsule,del ayed release 01-03 00:00: 00 Yes [id number] DIRECTED 1 mg DAILY 1 mg DA CHARIS (route: oral) Med Classific ation: Gastroint estinal Therapy Agents ondansetron 8 mg disintegrat ing tablet 01-03 00:00: 00 Yes [id number] DIRECTED 1 tablet EVERY 8 HOURS 1 [...] End Date/Time Encounter Type Admission Type Attending [facility] Care Department Encounter ID Discharge Date Discharge Status Discharge Condition Discharge Reason Percent Goals Met 2022-01-03 00:00:00 2022-01-03 00:00:00 Outpatient NEW ADMISSION LEENA SHERMAN [facility] [id number] 2022-01-03 00:00:00 DISCHARGE TO HOME OR SELF CARE INDEPENDEN T IN THE COMMUNITY COVID-19 - PT/CG REFUSES FURTHER VISITS
--- OUTSIDE RECORDS SUMMARY | 2024-06-24 22:07 | XMS_ITS | Clinical Summary ---
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 Active 12-29 00:00: 00 OTHER PANCYTOPENIA Active 07-15 00:00: 00 TUMOR LYSIS SYNDROME Active 07-15 00:00: 00 ATHSCL HEART DISEASE OF [place] CORONARY ARTERY W/O ANG PCTRS Active 07-15 [...] HISTORY OF FALLING Active 07-15 00:00: 00 SENIOR CARE (CURRENT) USE OF ANTICOAGULAN TS Active 01-03 [...] 0.4 mg capsule 4-05 00:00: 00 Yes [id number] DIRECTED Per instruc tions EVERY DAY Per instructio ns EVERY DAY (route: oral) Med Classific ation: Genitouri nary Therapy atorvastati n 80 mg tablet 3-30 00:00: 00 Yes [id number] Unavailable Per instruc tions AT BEDTIME Per instructio ns AT BEDTIME (route: oral) Med Classific ation: Cardiovas cular Therapy Agents allopurinol 300 mg tablet 01-03 00:00: 00 Yes [id number] DIRECTED 1 tablet DAILY 1 tablet DAILY (route: oral) Med Classific ation: Gout and Hyperuric emia Therapy cholecalcif sandi (vitamin D3) 25 mcg (1,000 unit) capsule 01-03 00:00: 00 Yes [id number] DIRECTED 1 capsule DAILY 1 capsule DAILY (route: oral) Med Classific ation: Electroly te Balance-N utritiona l Products Eliquis 5 mg tablet 01-03 00:00: 00 Yes [id number] DIRECTED 1 tablet 2 TIMES DAILY 1 tablet 2 TIMES DAILY (route: oral) Med Classific ation: Hematolog ical Agents metoprolol tartrate 50 mg tablet 01-03 00:00: 00 Yes [id number] DIRECTED 1 tablet 2 TIMES DAILY 1 tablet 2 TIMES DAILY (route: oral) Med Classific ation: Cardiovas cular Therapy Agents omeprazole 20 mg capsule,del ayed release 01-03 00:00: 00 Yes [id number] DIRECTED 1 mg DAILY 1 mg DA CHARIS (route: oral) Med Classific ation: Gastroint estinal Therapy Agents ondansetron 8 mg disintegrat ing tablet 01-03 00:00: 00 Yes [id number] DIRECTED 1 tablet EVERY 8 HOURS 1 [...] End Date/Time Encounter Type Admission Type Attending [facility] Care Department Encounter ID Discharge Date Discharge Status Discharge Condition Discharge Reason Percent Goals Met 2022-01-03 00:00:00 2022-01-03 00:00:00 Outpatient NEW ADMISSION LEENA SHERMAN [facility] [id number] 2022-01-03 00:00:00 DISCHARGE TO HOME OR SELF CARE INDEPENDEN T IN THE COMMUNITY COVID-19 - PT/CG REFUSES FURTHER VISITS
== END 2024-06-23 13:14 | disposition home or self-care (01) ==
LOC: HO.LNP 13:13
PROVIDERS: PCP Internal Medicine; Visit Provider Internal Medicine Pulmonary Disease
DX: R05.3 Chronic cough (principal); J47.9 Bronchiectasis, uncomplicated; D86.9 Sarcoidosis, unspecified
CPT/HCPCS: 99212